=== PATIENT | female | born 1940 | race American Indian/Alaskan Native ===

== ENCOUNTER → 2017-05-12 | Outpatient (CLI) | payer MEDICARE, BC ==
--- NOTE | 2017-05-12 14:34 | MM ---
Reason for exam: screening (asymptomatic). Last mammogram was performed 1 year ago. History: Patient is postmenopausal and had first child at age 36. Took estrogen for 5 years. Physical Findings: A clinical breast exam by your physician is recommended on an annual basis and results should be correlated with mammographic findings. MG 3D Screening Mammo W/Cad Bilateral CC and MLO view(s) were taken. Prior study comparison: May 08, 2016, bilateral MG 3d screening mammo w/cad. March 30, 2015, bilateral MG screening mammo w CAD. There are scattered fibroglandular densities. There is no discrete abnormality. No significant changes when compared with prior studies. ASSESSMENT: Negative, BI-RAD 1 RECOMMENDATION: Routine screening mammogram of both breasts in 1 year.
== END | disposition home or self-care (01) ==
LOC: RADMAMWWP 09:38
PROVIDERS: ATTEND Family Medicine
DX: Z12.31 Encounter for screening mammogram for malignant neoplasm of breast (principal)
CPT/HCPCS: 77063; G0202

== ENCOUNTER → 2018-06-10 | Outpatient (CLI) | payer MEDICARE, BC ==
--- NOTE | 2018-06-15 09:55 | MM ---
Reason for exam: screening (asymptomatic). Last mammogram was performed 1 year and 1 month ago. History: Patient is postmenopausal and had first child at age 36. Took estrogen for 5 years. Physical Findings: A clinical breast exam by your physician is recommended on an annual basis and results should be correlated with mammographic findings. MG 3D Screening Mammo W/Cad Bilateral CC and MLO view(s) were taken. Prior study comparison: May 12, 2017, bilateral MG 3d screening mammo w/cad. May 08, 2016, bilateral MG 3d screening mammo w/cad. The breast tissue is heterogeneously dense. This may lower the sensitivity of mammography. No suspicious abnormality. No significant changes when compared with prior studies. ASSESSMENT: Negative, BI-RAD 1 RECOMMENDATION: Routine screening mammogram of both breasts in 1 year.
== END | disposition home or self-care (01) ==
LOC: RADMAMWWP 10:19
PROVIDERS: ATTEND Family Medicine
DX: Z12.31 Encounter for screening mammogram for malignant neoplasm of breast (principal)
CPT/HCPCS: 77063; 77067

== ENCOUNTER 2019-02-03 20:54 | Observation (INO) | payer MEDICARE, BC ==
[2019-02-03] MEDS ORDERED: MELATONIN 3 MG TABLET PO PRN (21:59)
[2019-02-03] MEDS ORDERED: NALOXONE 0.4 MG/ML 1 ML VIAL IV PRN (21:59)
[2019-02-03] MEDS ORDERED: CALCIUM CARBONATE 500 MG CHEWABLE PO PRN (21:59)
[2019-02-03] MEDS ORDERED: ACETAMINOPHEN TAB 325 MG TAB PO PRN (21:59)
[2019-02-03 22:14] VITALS: RESP 18
[2019-02-03] MEDS ORDERED: ENOXAPARIN 40 MG/0.4 ML SYRINGE SQ SCH ×2 (22:15→22:28)
[2019-02-03] MEDS: ONDANSETRON 4 MG/2 ML VIAL IVP PRN (22:26)
[2019-02-03 22:35] LABS: Basophils % (A) 0 %; Eosinophils # (A) 0.1 k/uL (0-0.7); Eosinophils % (A) 3 %; HCT 36.9 % (34.0-46.0); HGB 12.1 gm/dL (11.4-16.0); Lymphocytes # (A) 0.7 k/uL (1.0-4.8); Lymphocytes % (A) 13 %; MCHC 32.7 g/dL (31.0-37.0); MCV 91.6 fL (80.0-100.0); Mean Platelet Volume 8.2; Monocytes # (A) 0.3 k/uL (0-1.0); Monocytes % (A) 5 %; Neutrophils # (A) 4.4 k/uL (1.3-7.7); Neutrophils % (A) 78 %; Platelet Count 172 k/uL (150-450); RBC 4.03 m/uL (3.80-5.40); RDW 12.9 % (11.5-15.5); WBC 5.7 k/uL (3.8-10.6)
[2019-02-03 22:38] VITALS: BMI 26.4
[2019-02-03 22:48] LABS: ALT 27 U/L (9-52); AST 31 U/L (14-36); Albumin 3.6 g/dL (3.5-5.0); Alkaline Phosphatase 49 U/L (38-126); Anion Gap 9 mmol/L; Blood Urea Nitrogen 12 mg/dL (7-17); Carbon Dioxide 22 mmol/L (22-30); Chloride 105 mmol/L (98-107); Glucose 88 mg/dL (74-99); Magnesium 1.6 mg/dL (1.6-2.3); Sodium 136 mmol/L (137-145); Total Bilirubin 1.1 mg/dL (0.2-1.3); Total Protein 6.3 g/dL (6.3-8.2)
[2019-02-03] MEDS: PANTOPRAZOLE 40 MG/10 ML VIAL IVP SCH (23:33)
[2019-02-03] MEDS: LACTATED RINGERS 1,000 ML IV SCH (23:33)
[2019-02-03] MEDS: CIPROFLOXACIN HCL 500 MG TAB PO SCH (23:33)
[2019-02-03] MEDS: metroNIDAZOLE 500 MG TAB PO SCH (23:33)
[2019-02-04] MEDS: LACTATED RINGERS 1,000 ML IV SCH ×2 (05:32→12:13)
[2019-02-04] MEDS: ONDANSETRON 4 MG/2 ML VIAL IVP PRN ×3 (05:34→17:20)
[2019-02-04] MEDS ORDERED: LEVOTHYROXINE 75 MCG TAB PO SCH (06:30)
[2019-02-04] MEDS: PANTOPRAZOLE 40 MG/10 ML VIAL IVP SCH (08:46)
[2019-02-04] MEDS: CIPROFLOXACIN HCL 500 MG TAB PO SCH (08:47)
[2019-02-04] MEDS: metroNIDAZOLE 500 MG TAB PO SCH ×2 (08:47→16:11)
[2019-02-04] MEDS ORDERED: LOSARTAN 50 MG TAB PO SCH ×2 (09:00)
[2019-02-04 11:27] LABS: Basophils % (A) 0 %; Eosinophils # (A) 0.1 k/uL (0-0.7); Eosinophils % (A) 2 %; HCT 37.4 % (34.0-46.0); Lymphocytes # (A) 0.9 k/uL (1.0-4.8); Lymphocytes % (A) 17 %; MCH 29.5 pg (25.0-35.0); MCV 92.3 fL (80.0-100.0); Mean Platelet Volume 8.1; Monocytes # (A) 0.3 k/uL (0-1.0); Monocytes % (A) 6 %; Neutrophils # (A) 3.9 k/uL (1.3-7.7); Neutrophils % (A) 73 %; Platelet Count 176 k/uL (150-450); RBC 4.06 m/uL (3.80-5.40); RDW 13.2 % (11.5-15.5); WBC 5.3 k/uL (3.8-10.6)
[2019-02-04 11:31] LABS: Anion Gap 6 mmol/L; Blood Urea Nitrogen 12 mg/dL (7-17); Calcium 8.7 mg/dL (8.4-10.2); Carbon Dioxide 24 mmol/L (22-30); Chloride 108 mmol/L (98-107); Glucose 84 mg/dL (74-99); Potassium 3.7 mmol/L (3.5-5.1); Sodium 138 mmol/L (137-145)
[2019-02-04 12:45] VITALS: BP 131/81; PULSE 81
[2019-02-04 16:17] VITALS: TEMP 100.1
[2019-02-04] MEDS: IOPAMIDOL-300 CONTRAST 30 ML VIAL (ORAL USE) PO PRN ×2 (17:06→17:48)
--- NOTE | 2019-02-04 19:13 | CT ---
EXAMINATION TYPE: CT abdomen pelvis w con DATE OF EXAM: 02/04/2019 COMPARISON: 03/04/2012 HISTORY: Acute gastroenterititis, diarrhea, ab pain, hx diverticulitis CT DLP: 1061 mGycm Automated exposure control for dose reduction was used. TECHNIQUE: Helical acquisition of images was performed from the lung bases through the pelvis. CONTRAST: Performed with Oral Contrast and with IV Contrast, patient injected with 100 mL of Isovue 300. FINDINGS: There is some mild atelectasis at the posterior lung bases. There is no pericardial effusion. There i s no pleural effusion. Liver spleen and stomach pancreas gallbladder appear normal. Bile ducts are no t dilated. There is no adrenal mass. The kidneys have normal size and contour. There is normal contrast opacific ation. There is 3 mm calculus lower pole right kidney. There is no hydronephrosis. Ureters are not di lated. There is no retroperitoneal adenopathy. Appendix appears normal. Bladder distends smoothly. Uterus appears normal. There is no free fluid in the pelvis. There is no s ign of pelvic mass. There is no inguinal hernia. There is no sign of a bowel obstruction. There is no mesenteric edema. There is no ascites or free air. The bony structures are intact. IMPRESSION: NEGATIVE CT SCAN ABDOMEN AND PELVIS. NORMAL APPENDIX. NO ADVERSE CHANGE COMPARED TO OLD EXAM. THERE I S CLEARING OF THE INFLAMMATORY CHANGES AT THE PROXIMAL SIGMOID COLON COMPARED TO OLD EXAM.
--- NOTE | 2019-02-04 23:53 | HP ---
HISTORY AND PHYSICAL DATE OF ADMISSION: 02/03/2019. DATE OF SERVICE: 02/03/2019. PRESENTING COMPLAINT: Nausea, vomiting, diarrhea. HISTORY OF PRESENTING COMPLAINT: This is a patient I saw yesterday evening whose chronic stable medical conditions are hypertension and hypothyroid for which patient takes Cozaar and Synthroid. The patient started having nausea, vomiting, diarrhea, and for last 3 days the diarrhea has been profuse multiple times, rather watery, no blood. Has been having also abdominal cramping. Feeling a bit weak, tired, run down, not able to keep anything down by mouth, feeling rather exhausted, dizzy, lightheaded. The patient close to 10 years ago had an episode of diverticulitis, was seen then by Dr. Jimenez. The patient was therefore admitted to the hospital for the same. REVIEW OF SYSTEMS: CONSTITUTIONAL: Weak, tired, run down. HEENT: None. RESPIRATORY: None. CARDIOVASCULAR: None. GASTROINTESTINAL: As above. GENITOURINARY: None. MUSCULOSKELETAL: None. DERMATOLOGICAL: None. HEMATOLOGICAL: None. NEUROLOGIC: None. PAST MEDICAL HISTORY: Diverticulitis, hypothyroid, essential hypertension. PAST SURGICAL HISTORY: None. SOCIAL HISTORY: The patient is a psychiatrist. No smoking, no alcohol. . FAMILY HISTORY: Diabetes. HOME MEDICATIONS: 1. Synthroid 50 mcg a day. 2. Cozaar 25 mg at bedtime. ALLERGIES: None. PHYSICAL EXAMINATION: Vital signs on presentation temperature 99.1, pulse 72, respiratory 18, blood pressure 134/80, pulse ox 98% on room air. GENERAL APPEARANCE: Average build lying in bed, tired appearing. EYES: Pupils are equal. Conjunctive normal. HEENT: External appearance of ears and nose normal. Oral cavity dry mucous membranes. NECK: JVD not raised. Mass not palpable. Respiratory effort normal. LUNGS: Fair air entry. CARDIOVASCULAR: 1st and 2nd heart sounds. No edema. ABDOMEN: Soft. Mild tenderness. No guarding or rigidity. Liver and spleen not palpable. LYMPHATIC: No lymph nodes palpable in the neck or axillae. PSYCHIATRY: Alert and oriented x3. Mood and affect normal. NEUROLOGIC: Pupils equal. Cranial nerves grossly intact. Power and sensation grossly intact. INVESTIGATIONS: White count 5.7, hemoglobin 12.1, potassium 4, BUN 12, creatinine 0.49. ASSESSMENT: 1. Acute severe gastroenteritis, suspect bacterial. The patient has had it for 3 days. 2. Clinical severe dehydration. 3. Essential hypertension. 4. Hypothyroidism. PLAN: Patient will be admitted, started on IV fluids. Empirically start the patient on ciprofloxacin and Flagyl. The patient initially was started on clear liquids and advanced as tolerated. Give Lovenox for DVT prophylaxis. Care was discussed with the patient and , Dr. Martines, and care was discussed. MMODL / IJN: [id number] /
--- NOTE | 2019-02-06 17:34 | DS ---
DISCHARGE SUMMARY DATE OF ADMISSION: 02/03/19. DATE OF DISCHARGE: 02/04/19. FINAL DIAGNOSES: 1. Acute severe gastroenteritis, suspect bacterial. 2. Clinical severe dehydration. 3. Essential hypertension. 4. Hypothyroidism. HOSPITAL COURSE: The patient presented with acute severe gastroenteritis, nausea, vomiting, diarrhea. The patient was given IV fluids, empirically treated with Cipro and Flagyl. Doing better by the time of discharge. The patient is still on clear liquids though nausea has improved. The patient has an important family event at home. Heart grandchild's baby shower and is keen to go home. The patient was also put on Metamucil and over-the- counter Imodium. Care was discussed with the patient and her , Dr. Martines and questions were answered. PHYSICAL EXAMINATION: Temperature 99.8, pulse 81, respiratory 18, blood pressure 130/81, pulse ox 99 percent room air. ABDOMEN: Soft, nontender. INVESTIGATIONS: Potassium 3.7. BUN and creatinine are normal. White count 5.3. DISCHARGE MEDICATIONS: 1. Vitamin D3 1000 units p.o. daily. 2. Vitamin B12 1000 mcg a day. 3. Synthroid 50 mcg a day. 4. Cozaar 25 mg p.o. q.h.s. 5. Ciprofloxacin 500 mg p.o. b.i.d. 4 tablets. 6. Flagyl 500 mg p.o. t.i.d. 7 tablets. Follow with a family doctor in 3 days. DIET: Advance as tolerated. MMODL / IJN: [id number] /
== END 2019-02-04 19:51 | disposition home or self-care (01) ==
LOC: PREINTOOBSV 21:41 → 4MS4W 21:52
PROVIDERS: ADMIT Hospitalist; ATTEND Hospitalist
DX: K52.9 Noninfective gastroenteritis and colitis, unspecified (principal); E86.0 Dehydration; I10 Essential (primary) hypertension; E03.9 Hypothyroidism, unspecified; K57.90 Diverticulosis of intestine, part unspecified, without perforation or abscess without bleeding; Z79.890 Hormone replacement therapy; Z79.899 Other long term (current) drug therapy; Z83.3 Family history of diabetes mellitus
CPT/HCPCS: 96376; 96372; 96374; 96375; 80053; 80048; 83735; 85025 ×2; 74177; G0379; G0378 ×2; J2405 ×2; J1650; C9113 ×2; Q9967

== ENCOUNTER → 2019-09-06 | Outpatient (CLI) | payer MEDICARE, BC ==
--- NOTE | 2019-09-06 13:11 | US ---
EXAMINATION TYPE: US venous doppler duplex LE RT DATE OF EXAM: 09/06/2019 12:54 PM COMPARISON: NONE CLINICAL HISTORY: Right leg; R60.0 Localized edema. recent trip to [place] and patient noticed swelling in right leg that comes and goes SIDE PERFORMED: Right TECHNIQUE: The lower extremity deep venous system is examined utilizing real time linear array sonog kena with graded compression, doppler sonography and color-flow sonography. VESSELS IMAGED: External Iliac Vein (EIV) Common Femoral Vein Deep Femoral Vein Greater Saphenous Vein * Femoral Vein Popliteal Vein Small Saphenous Vein * Proximal Calf Veins (* superficial vessels) Right Leg: Appears negative for DVT IMPRESSION: Grayscale, color doppler, spectral doppler imaging performed of the deep veins of the lo wer extremities. There is normal flow, compressibility, vascular waveforms.
--- NOTE | 2019-09-06 15:08 | XR ---
EXAMINATION TYPE: XR knee complete RT DATE OF EXAM: 09/06/2019 CLINICAL HISTORY: Right knee pain with no known injury TECHNIQUE: Three views of the right knee are obtained. COMPARISON: None. FINDINGS: There is no acute fracture/dislocation evident in right knee. The tri-compartment joint s paces appear aligned with small tricompartmental osteophytes. The tricompartment joint space narrowin g is present. On the frontal view there appears to be a hypoattenuated curvilinear area in the later al compartment however this does not persist on oblique imaging and likely relates to overlap of tiss ues. The overlying soft tissue appears unremarkable. IMPRESSION: There is no acute fracture or dislocation in the right knee. Moderate tricompartmental a rthropathy.
--- NOTE | 2019-09-07 11:26 | MM ---
Reason for exam: screening (asymptomatic). Last mammogram was performed 1 year and 3 months ago. History: Patient is postmenopausal and had first child at age 36. Took estrogen for 5 years. Physical Findings: A clinical breast exam by your physician is recommended on an annual basis and results should be correlated with mammographic findings. MG 3D Screening Mammo W/Cad Bilateral CC and MLO view(s) were taken. Prior study comparison: June 10, 2018, bilateral MG 3d screening mammo w/cad. May 12, 2017, bilateral MG 3d screening mammo w/cad. The breast tissue is heterogeneously dense. This may lower the sensitivity of mammography. No significant changes when compared with prior studies. ASSESSMENT: Benign, BI-RAD 2 RECOMMENDATION: Routine screening mammogram of both breasts in 1 year.
== END | disposition home or self-care (01) ==
LOC: RADUSWWP 12:23
PROVIDERS: ATTEND Family Medicine
DX: Z12.31 Encounter for screening mammogram for malignant neoplasm of breast (principal); R60.0 Localized edema; M17.11 Unilateral primary osteoarthritis, right knee
CPT/HCPCS: 77063; 77067

== ENCOUNTER → 2019-11-15 | Outpatient (CLI) | payer MEDICARE ==
[2019-11-15 10:06] LABS: Basophils # (A) 0.1 k/uL (0-0.2); Basophils % (A) 2 %; Eosinophils # (A) 0.1 k/uL (0-0.7); Eosinophils % (A) 1 %; HCT 40.8 % (34.0-46.0); HGB 12.8 gm/dL (11.4-16.0); Lymphocytes # (A) 1.9 k/uL (1.0-4.8); Lymphocytes % (A) 33 %; MCH 29.7 pg (25.0-35.0); MCHC 31.5 g/dL (31.0-37.0); MCV 94.4 fL (80.0-100.0); Mean Platelet Volume 8.5; Monocytes # (A) 0.3 k/uL (0-1.0); Monocytes % (A) 5 %; Neutrophils # (A) 3.3 k/uL (1.3-7.7); Neutrophils % (A) 58 %; Platelet Count 240 k/uL (150-450); RBC 4.33 m/uL (3.80-5.40); RDW 12.4 % (11.5-15.5); WBC 5.8 k/uL (3.8-10.6)
[2019-11-15 10:15] LABS: ALT 30 U/L (4-34); AST 38 U/L (14-36); African American GFR (CKD) >90 (>60 ml/min/1.73 sqM); Albumin 4.2 g/dL (3.5-5.0); Alkaline Phosphatase 61 U/L (38-126); Anion Gap 6 mmol/L; Blood Urea Nitrogen 9 mg/dL (7-17); Calcium 9.5 mg/dL (8.4-10.2); Carbon Dioxide 29 mmol/L (22-30); Chloride 106 mmol/L (98-107); Glucose 110 mg/dL (74-99); Non-African American GFR(CKD) 86 (>60 ml/min/1.73 sqM); Potassium 4.8 mmol/L (3.5-5.1); Sodium 141 mmol/L (137-145); Total Bilirubin 1.1 mg/dL (0.2-1.3); Total Protein 7.1 g/dL (6.3-8.2)
--- NOTE | 2019-11-15 11:07 | CT ---
EXAMINATION TYPE: CT abdomen pelvis w con DATE OF EXAM: 11/15/2019 COMPARISON: 02/04/2019 HISTORY: Diverticulitis of large intestine CT DLP: 1017 mGycm Automated exposure control for dose reduction was used. CONTRAST: CT scan of the abdomen pelvis is performed with IV Contrast, patient injected with 100 ml mL of Isovu e 300. FINDINGS- LUNG BASES-subsegmental linear changes at the lung bases most typical of atelectasis or scar.. LIVER/GB- No gross abnormality is appreciated. PANCREAS- No gross abnormality is seen. SPLEEN- No gross abnormality is seen. ADRENALS- No gross abnormality is seen. KIDNEYS/BLADDER-tiny subcentimeter hypodensities within the kidneys too small to characterize but sta tistically most likely related to cysts. No hydronephrosis. 2 mm lower pole right renal calculus. BOWEL-bowel gas pattern nonspecific with changes of diverticulosis. No CT evidence of diverticulitis. Retained fecal debris limits assessment.. LYMPH NODES- No greater than 1cm abdominal or pelvic lymph nodes areappreciated. OSSEOUS STRUCTURES-hypertrophic and degenerative change of the spine.. OTHER- aorta of normal caliber. No free fluid. No free air. Tarlov cyst noted involving the sacrum. There is a fat-containing lower anterior abdominal wall hernia. IMPRESSION- 1. Diverticulosis with no CT evidence of diverticulitis. 2. Nonobstructing 2 mm lower pole right renal calculus.
== END | disposition home or self-care (01) ==
LOC: RADCTMAIN 09:26
PROVIDERS: ATTEND Internal Medicine Gastroenterology
DX: K57.90 Diverticulosis of intestine, part unspecified, without perforation or abscess without bleeding (principal); N20.0 Calculus of kidney
CPT/HCPCS: 80053; 85025; 74177; 36415; Q9967

== ENCOUNTER → 2019-12-13 | Outpatient (CLI) | payer MEDICARE ==
--- NOTE | 2019-12-13 16:28 | BD ---
EXAMINATION TYPE: Axial Bone Density DATE OF EXAM: 12/13/2019 COMPARISON: 06.07.2010 CLINICAL HISTORY: 78 YR OLD FEMALE....ICD-10 CODE: Z78.0 ASYMPTOMATIC MENOPAUSAL STATE Height: 61.5 Weight: 149 FRAX RISK QUESTIONS: NOTHING TO NOTE HERE RISK FACTORS HISTORY OF: Postmenopausal woman: YES, AT AGE 57 YRS OLD Take estrogen and/or progesterone medications: IN THE PAST FOR A SHORT WHILE Lost more than 2 inches in height since high school: YES Hyperparathyroidism: NO Adrenal Insufficiency: NO MEDICATIONS: Thyroid Medications: YES, SYNTHROID, FOR ABOUT 10 YRS Additional Medications: VIT D, BP, REFLUX MEDS ON AND OFF, STATIN FOR CHOLESTEROL, Additional History: RECENTLY STOPPED THE STATIN, HYPERTENSION EXAM MEASUREMENTS: Bone mineral densitometry was performed using the Doge[employer] System. Bone mineral density as measured about the Lumbar spine is: ----- L1-L4(G/cm2): 1.033 T Score Values are as follows: ----- L1: -1.5 ----- L2: -1.6 ----- L3: -1.2 ----- L4: -1.0 ----- L1-L4: -1.2 Bone mineral density has: Increased 4.0% since study of: 06.07.2010 Bone mineral density about the R hip (g/cm2): 0.902 Bone mineral density about the L hip (g/cm2): 0.937 T Score values are as follows: -----R Neck: -2.3 -----L Neck: -2.1 -----R Total: -0.8 -----L Total: -0.6 Bone mineral density has: Increased 0.5% since study of: 06.07.2010 FRAX%s: THERE IS A 9.6% CHANCE FOR A MAJOR OSTEOPOROTIC FX AND A 2.9% FOR HIP....PROBABILITY FOR FX IN 10 YRS TIME IMPRESSION: Osteopenia (T Score between -2.5 and -1). There is slightly increased risk of fracture and the patient may be considered for treatment. Re-Screen 2-5 years. NOTE: T-SCORE=SD OF THE YOUNG ADULT MEAN.
== END | disposition home or self-care (01) ==
LOC: RADBDWWP 10:00
PROVIDERS: ATTEND Family Medicine
DX: M85.89 Other specified disorders of bone density and structure, multiple sites (principal); Z78.0 Asymptomatic menopausal state
CPT/HCPCS: 77080

== ENCOUNTER 2020-12-27 21:21 | Observation (INO) | payer MEDICARE ==
[2020-12-27] MEDS ORDERED: ASPIRIN 81 MG PO STA (21:29)
[2020-12-27] MEDS ORDERED: NITROGLYCERIN SL TABS 0.4 MG TAB SUBLINGUAL STA (21:32)
[2020-12-27 21:47] VITALS: RESP 16
[2020-12-27 21:50] LABS: Basophils % (A) 0 %; Eosinophils # (A) 0.1 k/uL (0-0.7); Eosinophils % (A) 2 %; HCT 39.5 % (34.0-46.0); HGB 12.7 gm/dL (11.4-16.0); Lymphocytes % (A) 30 %; MCH 29.9 pg (25.0-35.0); MCHC 32.1 g/dL (31.0-37.0); MCV 93.1 fL (80.0-100.0); Mean Platelet Volume 8.6; Monocytes # (A) 0.4 k/uL (0-1.0); Monocytes % (A) 5 %; Neutrophils % (A) 61 %; Platelet Count 199 k/uL (150-450); RBC 4.25 m/uL (3.80-5.40); RDW 12.7 % (11.5-15.5); WBC 6.7 k/uL (3.8-10.6)
--- NOTE | 2020-12-27 22:01 | XR ---
EXAMINATION: XR chest 2V DATE AND TIME: 12/27/2020 9:51 PM CLINICAL INDICATION: PHH; Chest Pain TECHNIQUE: Departmental protocol COMPARISON: None FINDINGS: In the right infrahilar position of the right lower lung zone there is a zone of subtle ill-defined a dded opacity, measuring approximately 3 cm greatest dimension, which corresponds to the medial right lower lobe. This subtle radiographic finding can correlate with a clinical diagnosis of developing ri ght lower lobe bronchopneumonia. The lungs are otherwise clear and well expanded. The pleural spaces are negative. The cardiac silhouette is not enlarged. The remainder of the mediastinal silhouette is unremarkable. The skeletal structures and soft tissues are negative for acute findings. IMPRESSION: Findings suggest right lower lobe infiltrate.
[2020-12-27 22:04] LABS: INR 0.9 (<1.2); Partial Thromboplastin Time 23.5 sec (22.0-30.0); Prothrombin Time 9.8 sec (9.0-12.0)
[2020-12-27 22:09] LABS: Albumin 4.4 g/dL (3.5-5.0); Calcium 9.5 mg/dL (8.4-10.2); Magnesium 1.8 mg/dL (1.6-2.3); Potassium 4.3 mmol/L (3.5-5.1); Total Bilirubin 0.8 mg/dL (0.2-1.3); Total Protein 7.3 g/dL (6.3-8.2)
--- NOTE | 2020-12-27 22:23 | ED ---
Chest Pain HPI - General Chief Complaint: Chest Pain Stated Complaint: jaw pain Time Seen by Provider: 12/27/20 21:30 Source: patient, family Mode of arrival: ambulatory Limitations: no limitations - History of Present Illness Initial Comments: 79 year old female with past history of hypertension who presents emergency Department with reported jaw pain. States that she started having jaw pain last evening with notable increase in her blood pressure. She did take double the dose of her high blood pressure medication without improvement. Denies previous history of cardiac disease. No previous history of stress testing or heart catheterization. Does admit to associated nausea and fatigue. Denies shortness of breath. No cough. Denies fevers or chills. No ripping or tearing sensation to her back. No history of DVT or PE. No calf pain or swelling. She did call and speak with Dr. Valdez who accompanies the patient into the ED. - Related Data Home Medications Medication Instructions Recorded Confirmed Levothyroxine Sodium [Synthroid] 75 mcg PO DAILY 12/27/20 12/27/20 Previous Rx's Medication Instructions Recorded Aspirin 81 mg PO DAILY #30 chewable 12/28/20 Losartan [Cozaar] 50 mg PO HS #0 12/28/20 amLODIPine [Norvasc] 5 mg PO DAILY #30 tab 12/28/20 Allergies Allergy/AdvReac Type Severity Reaction Status Date / Time No Known Allergies Allergy Verified 12/27/20 22:41 Review of Systems ROS Statement: Those systems with pertinent positive or pertinent negative responses have been documented in the HPI. ROS Other: All systems not noted in ROS Statement are negative. EKG Findings - EKG Comments: EKG Findings:: EKG demonstrates a normal sinus rhythm with a ventricular rate of 80. ND interval 158. QRS 74. QTC of 403. Inverted T waves with ST depression in lead 3. J-point elevation in 1 and aVL. No acute STEMI criteria. Past Medical History Past Medical History: Hypertension, Thyroid Disorder History of Any Multi-Drug Resistant Organisms: None Reported Past Surgical History: No Surgical Hx Reported Past Psychological History: No Psychological Hx Reported Smoking Status: Never smoker Past Alcohol Use History: None Reported Past Drug Use History: None Reported - Past Family History Father Family Medical History: Diabetes Mellitus General Exam Limitations: no limitations General appearance: alert, in no apparent distress Head exam: Present: atraumatic, normocephalic, normal inspection Eye exam: Present: normal appearance, PERRL, EOMI. Absent: scleral icterus, conjunctival injection, periorbital swelling ENT exam: Present: normal exam, mucous membranes moist Neck exam: Present: normal inspection. Absent: tenderness, meningismus, lymphadenopathy Respiratory exam: Present: normal lung sounds bilaterally. Absent: respiratory distress, wheezes, rales, rhonchi, stridor Cardiovascular Exam: Present: regular rate, normal rhythm, normal heart sounds. Absent: systolic murmur, diastolic murmur, rubs, gallop, clicks GI/Abdominal exam: Present: soft, normal bowel sounds. Absent: distended, tenderness, guarding, rebound, rigid Extremities exam: Present: normal inspection, full ROM, normal capillary refill. Absent: tenderness, pedal edema, joint swelling, calf tenderness Back exam: Present: normal inspection Neurological exam: Present: alert, oriented X3, CN II-XII intact Psychiatric exam: Present: normal affect, normal mood Skin exam: Present: warm, dry, intact, normal color. Absent: rash Course Vital Signs 12/27/20 12/27/20 12/27/20 21:31 21:46 22:09 Temperature 98.6 F Pulse Rate 87 85 Respiratory 18 16 Rate Blood Pressure 183/99 137/89 O2 Sat by Pulse 99 97 Oximetry 12/27/20 23:17 Temperature Pulse Rate Respiratory Rate Blood Pressure 128/61 O2 Sat by Pulse Oximetry Chest Pain MDM - MDM Upon arrival patient was placed into room 1. A thorough history and physical exam was performed. Patient is hooked up to continuous pulse ox and cardiac monitoring. 12-lead EKG is performed which is reviewed by myself and Dr. Stephens. Laboratory studies are conducted. Patient was given 324 chewable aspirin and a sublingual nitro. She does have improvement in her pain and blood pressure. Laboratory studies are reviewed. Troponin is negative. Chest x-ray does demonstrate haziness to the right lower lobe. Patient has no clinical symptoms of pneumonia. I discussed results with the patient. Due to her high heart score I did recommend an overnight admission with cardiac consultation in the morning. I did order a placed on the patient. Troponins will be trended. Patient remained in stable condition awaiting a bed on the floor Disposition Clinical Impression: Chest pain Disposition: ADMITTED IP TO THIS HOSP Condition: Stable Is patient prescribed a controlled substance at d/c from ED?: No Decision to Admit Reason: Admit from EC Decision Date: 12/27/20 Decision Time: 22:49
[2020-12-27] MEDS ORDERED: NALOXONE 0.4 MG/ML 1 ML VIAL IV PRN (22:52)
[2020-12-28] MEDS ORDERED: NITROGLYCERIN OINT 1 INCH/GM PACKET TOPICAL STA (00:17)
[2020-12-28 03:42] LABS: Basophils % (A) 0 %; Eosinophils # (A) 0.1 k/uL (0-0.7); Eosinophils % (A) 2 %; HCT 35.7 % (34.0-46.0); HGB 11.8 gm/dL (11.4-16.0); Lymphocytes # (A) 2.1 k/uL (1.0-4.8); Lymphocytes % (A) 34 %; MCH 30.4 pg (25.0-35.0); MCV 92.1 fL (80.0-100.0); Mean Platelet Volume 8.6; Monocytes # (A) 0.4 k/uL (0-1.0); Monocytes % (A) 6 %; Neutrophils # (A) 3.5 k/uL (1.3-7.7); Neutrophils % (A) 56 %; Platelet Count 197 k/uL (150-450); RBC 3.87 m/uL (3.80-5.40); RDW 12.8 % (11.5-15.5); WBC 6.2 k/uL (3.8-10.6)
[2020-12-28 04:01] LABS: Potassium 4.1 mmol/L (3.5-5.1)
[2020-12-28 04:02] LABS: African American GFR (CKD) >90 (>60 ml/min/1.73 sqM); Anion Gap 5 mmol/L; Blood Urea Nitrogen 15 mg/dL (7-17); Carbon Dioxide 28 mmol/L (22-30); Chloride 105 mmol/L (98-107); Glucose 102 mg/dL (74-99); Non-African American GFR(CKD) 86 (>60 ml/min/1.73 sqM); Sodium 138 mmol/L (137-145)
[2020-12-28] MEDS ORDERED: LEVOTHYROXINE 75 MCG TAB PO SCH (06:30)
[2020-12-28] MEDS ORDERED: CAFFEINE CITRATE 60 MG/3 ML VIAL IV PRN (06:51)
[2020-12-28] MEDS ORDERED: REGADENOSON 0.4 MG/5 ML SYRINGE IV PRN (06:51)
[2020-12-28] MEDS ORDERED: AMINOPHYLLINE 500 MG/20 ML VIAL IV PRN (06:51)
[2020-12-28] MEDS ORDERED: amLODIPine 5 MG TAB PO SCH (07:30)
--- NOTE | 2020-12-28 08:25 | CONS ---
CONSULTATION HISTORY OF PRESENT ILLNESS: Mrs. Martines is a 79-year-old female with history of hypertension and also hypothyroidism who has been experiencing nausea, vomiting, dizziness, and also noted to have uncontrolled hypertension for the last 48 hours. The patient has been on Cozaar 50 mg, and she has taken additional doses without much improvement in the blood pressure. She also started having some jaw pain on the left side. Pain is mild. On a scale of 1- 10, it was described as 3. No sweating or shortness of breath. She does admit that she has been short of breath with exertional activities like climbing stairs. In view of that, the patient came to the emergency room. EKG showed a sinus rhythm without any significant changes except T-wave inversions in lead 3. No history of any previous angina or myocardial infarction. No history of strokes. No history of diabetes. The patient is being admitted to the hospital for evaluation of possible unstable angina and uncontrolled hypertension. PAST MEDICAL HISTORY: Significant for hypertension, hypothyroidism, diverticulosis and diverticulitis. No history of previous myocardial infarction or strokes. No diabetes. MEDICATIONS: Her medications prior to admission included Cozaar 50 mg daily and also levothyroxine 75 mcg. She has been using diuretics on p.r.n. basis. ALLERGIES: No known allergies. REVIEW OF SYSTEMS: Denies any headache, visual disturbances. No complaints of cough, fever, or chills. No complaints of abdominal pain, nausea and diarrhea. No focal weakness. PHYSICAL EXAMINATION: Physical examination reveals an elderly female who is alert, oriented, does not appear to be in acute distress. Blood pressure initially was 180/80, subsequently came down to 130/70. NECK: Supple. No JVD. HEART: S1 and S2 heard. No significant murmurs heard. LUNGS: Appear to be clear. No rhonchi or wheezing. ABDOMEN: Soft. EXTREMITIES: No cyanosis, clubbing, or edema. EKG showed sinus rhythm without any acute ST-T abnormalities. Chest x-ray showing some right lower lobe infiltrate. IMPRESSION: 1. Jaw pain, rule out angina. 2. Uncontrolled hypertension. 3. Hypothyroidism. 4. Possible infiltrate in the right lower lobe. PLAN: We will continue to monitor troponin values. We will get an echocardiogram. If echo is normal and troponin is normal, we will proceed with a Lexiscan stress test. Further recommendations depend on the findings on the above tests. The patient does not have any clinical signs suggestive of pneumonia. Will follow chest x-ray reports and if necessary, a pulmonary consult will be obtained. YASH / DAYTON: [id number] /
[2020-12-28] MEDS ORDERED: LOSARTAN 50 MG TAB PO SCH (09:00)
[2020-12-28 11:27] VITALS: TEMP 97.7
[2020-12-28 12:16] VITALS: BP 152/83; PULSE 63
--- NOTE | 2020-12-28 12:25 | ECHOF ---
Referral Reason:chest pain MEASUREMENTS -------- HEIGHT: 160.0 cm WEIGHT: 73.5 kg BP: 159/81 RVIDd: 2.8 cm (< 3.3) IVSd: 1.0 cm (0.6 - 1.1) LVIDd: 4.3 cm (3.9 - 5.3) LVPWd: 1.1 cm (0.6 - 1.1) IVSs: 1.4 cm LVIDs: 3.0 cm LVPWs: 1.6 cm LA Diam: 3.0 cm (2.7 - 3.8) LAESV Index (A-L): 24.58 ml/m Ao Diam: 2.8 cm (2.0 - 3.7) AV Cusp: 1.6 cm (1.5 - 2.6) MV EXCURSION: 12.126 mm (> 18.000) MV EF SLOPE: 44 mm/s (70 - 150) EPSS: 0.6 cm MV E Tej: 0.89 m/s MV DecT: 176 ms MV A Tej: 1.05 m/s MV E/A Ratio: 0.85 RAP: 5.00 mmHg RVSP: 34.57 mmHg FINDINGS -------- Sinus rhythm. This was a technically good study. The left ventricular size is normal. Left ventricular wall thickness is normal. Overall left vent ricular systolic function is normal with, an EF between 60 - 65 %. The right ventricle is normal in size. Normal LA size by volume 22+/-6 ml/m2. The right atrium is normal in size. Interatrial and interventricular septum intact. There is mild aortic valve sclerosis. Trace amount of aortic regurgitation. [id number] mitral regurgitation is present. Mild tricuspid regurgitation present. There is mild pulmonary hypertension. The right ventricular systolic pressure, as measured by Doppler, is 34.57mmHg. Trace/mild (physiologic) pulmonic regurgitation. The aortic root size is normal. Normal inferior vena cava with normal inspiratory collapse consistent with estimated right atrial pre ssure of 5 mmHg. There is no pericardial effusion. CONCLUSIONS -------- 1. The left ventricular size is normal. 2. Left ventricular wall thickness is normal. 3. Overall left ventricular systolic function is normal with, an EF between 60 - 65 %. 4. There is mild aortic valve sclerosis. 5. Trace amount of aortic regurgitation. 6. Dmts-ld-dezqktza mitral regurgitation is present. 7. Mild tricuspid regurgitation present. 8. There is mild pulmonary hypertension. 9. The right ventricular systolic pressure, as measured by Doppler, is 34.57mmHg. 10. Trace/mild (physiologic) pulmonic regurgitation. 11. There is no pericardial effusion. COMPTROLLER: Suki Gordon RDCS
--- NOTE | 2020-12-28 12:34 | NM ---
EXAMINATION TYPE: NM stress lexiscan cardiolite DATE OF EXAM: 12/28/2020 COMPARISON: NONE HISTORY: History of hypertension with chest pain. TECHNIQUE: After the intravenous administration of 10.0 mCi Tc 99m Sestamibi - Cardiolite resting SP ECT images acquired 45 minutes post injection. The patient received 0.4mg Lexiscan, 25.5 mCi Tc 99m Sestamibi - Stress images obtained [address] injection FINDINGS: Review of stress and rest SPECT images demonstrates no distinct perfusion abnormality. Gated analysi s shows normal wall motion with an estimated left ventricular ejection fraction of 59 %. IMPRESSION: No convincing scintigraphic evidence for reversible ischemia.
[2020-12-28 13:18] LABS: Cholesterol 210 mg/dL (<200); HDL Cholesterol 59 mg/dL (40-60); LDL Cholesterol,Calculated 136 mg/dL (0-99); Triglycerides 76 mg/dL (<150)
--- NOTE | 2020-12-28 14:43 | EST ---
EXERCISE STRESS AGE: 79 SEX: Female HT: 5'3" WT: 162 lbs. PROTOCOL: Lexiscan Cardiolite STAGE: N/A DURATION OF EXERCISE: 5 min. HEART RATE REST: 61 BLOOD PRESSURE REST: 151/71 MAXIMUM HEART RATE ACHIEVED: 106 MAXIMUM BLOOD PRESSURE: 150/74 85% MPHR: 122 100% MPHR: 143 METS: N/A INDICATIONS: Chest pain. CLINICAL INFORMATION: STRESS DATA: Heart rate 61, pressure is 151/71 mmHg. Baseline EKG showed sinus mechanism. 0.4 mg of Lexiscan given over 15 seconds per protocol. Max heart rate was 106 beats per minute and maximum pressure was 150/74 mmHg. Clinically the patient did not have any symptoms of chest pain or chest discomfort and the EKG did not show any significant ST or T-wave abnormalities concerning for ischemia. CONCLUSION: 1. Nondiagnostic electrocardiogram stress testing in response to Lexiscan. 2. Please follow up on the Cardiolite portion on a separate. MMODL / IJN: [id number] /
--- NOTE | 2020-12-29 11:00 | P.HPIM ---
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 Patient normally in good health. She follows with Dr. Boland. Her family physician. Because of COVID 19 pandemic has not been able to follow up. She also takes care of who has current medical conditions. Or the course of last few months she is put on weight as she's been crying on different cooking recipes. And because of the pandemic has been pretty much homebound. She thinks a baseline blood pressure runs around 150 systolic. For 2 days at home patient was not feeling well just feeling out of sorts. She also developed some jaw discomfort. She speak to her son or decided to tell her to come to the ER. She denied any precordial chest pain. Because of angina a: She was admitted for the same. This morning she is feeling better. Her blood pressure recorded home was over 200 systolic. Review of systems: GEN.: Tired EYES: None HEENT: Left jaw and neck aching NECK: None RESPIRATORY: None CARDIOVASCULAR: None GASTROINTESTINAL: None GENITOURINARY: None MUSCULOSKELETAL: Occasional joint aches LYMPHATICS: None HEMATOLOGICAL: None PSYCHIATRY: None NEUROLOGICAL: None Past medical history to include: Essential hypertension, hypothyroid Social history: Patient lives with her retired . She is a retired psychiatrist. No history of smoking or alcohol. Physical examination: VITAL SIGNS: 98.6, 87, 18, 183.99, 99% room air upon presentation] GENERAL: Average built, sitting up, comfortable. EYES: Pupils equal. Conjunctiva normal. HEENT: External appearance of nose and ears normal, oral cavity grossly normal. NECK: JVD not raised; masses not palpable. HEART: First and second heart sounds are normal; no edema. LUNGS: Respiratory rate normal; clear to auscultation. ABDOMEN: Soft, nontender, liver spleen not palpable, no masses palpable. PSYCH: Alert and oriented x3; mood and affect normal. NEUROLOGICAL: Cranial nerves grossly intact; no facial asymmetry, power and sensation grossly intact. LYMPHATICS: No lymph nodes palpable in the axilla and neck INVESTIGATIONS, reviewed in the clinical context: WBC 6.2 hemoglobin 11.8 platelets 197 potassium 4.1 creatinine 0.65 LDL 136 TSH 3.3 Coronavirus P/Cr-not detected EKG tracing personally reviewed by me-normal sinus rhythm Chest x-ray film personally reviewed by me-lung pearson clear Assessment and plan: -Accelerated essential hypertension, causing possible angina a every relevant for jaw pain. Norvasc is being added. Continue Cozaar -Possible angina equivalent, with jaw pain -Hypothyroid, continue Synthroid -Primary osteoarthritis, use Tylenol when necessary Patient was seen by cartilage is Dr. Seth. Stress test was ordered. Amlodipine was added for the blood pressure. And also from angina component. Aspirin was added. Care was discussed with the patient. Past Medical History Past Medical History: Hypertension, Thyroid Disorder History of Any Multi-Drug Resistant Organisms: None Reported Past Surgical History: No Surgical Hx Reported Past Psychological History: No Psychological Hx Reported Smoking Status: Never smoker Past Alcohol Use History: None Reported Past Drug Use History: None Reported - Past Family History Father Family Medical History: Diabetes Mellitus Medications and Allergies Home Medications Medication Instructions Recorded Confirmed Type Levothyroxine Sodium [Synthroid] 75 mcg PO DAILY 12/27/20 12/27/20 History Aspirin 81 mg PO DAILY #30 chewable 12/28/20 Rx Losartan [Cozaar] 50 mg PO HS #0 12/28/20 12/27/20 Rx amLODIPine [Norvasc] 5 mg PO DAILY #30 tab 12/28/20 Rx Allergies Allergy/AdvReac Type Severity Reaction Status Date / Time No Known Allergies Allergy Verified 12/27/20 22:41 Physical Exam Vitals: Vital Signs Temp Pulse Resp BP Pulse Ox 12/28/20 12:00 63 152/83 100 12/28/20 08:00 97.7 F 61 159/81 99 12/28/20 04:00 98.1 F 78 16 159/81 98 12/28/20 02:00 62 16 Intake and Output 12/28/20 12/28/20 12/29/20 14:59 22:59 06:59 Intake Total 0 Balance 0 Intake: Oral 0 Other: # Voids 1 Weight 73.5 kg Results CBC & Chem 7: 12/28/20 03:21 12/28/20 03:21 Labs: Abnormal Lab Results - Last 24 Hours (Table) 12/28/20 12/28/20 Range/Units 03: 03:21 Glucose 102 H (74-99) mg/dL Cholesterol 210 H (<200) mg/dL LDL Cholesterol, Calc 136 H (0-99) mg/dL Thrombosis Risk Factor Assmnt - Choose All That Apply Each Factor Represents 1 point: Obesity (BMI >25) Each Risk Factor Represents 3 Points: Age 75 years or older Thrombosis Risk Factor Assessment Total Risk Factor Score: 4 Thrombosis Risk Factor Assessment Level: Moderate Risk
--- NOTE | 2020-12-29 11:05 | P.DS ---
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 Patient normally in good health. She follows with Dr. Boland. Her family physician. Because of COVID 19 pandemic has not been able to follow up. She also takes care of who has current medical conditions. Or the course of last few months she is put on weight as she's been crying on different cooking recipes. And because of the pandemic has been pretty much homebound. She thinks a baseline blood pressure runs around 150 systolic. For 2 days at home patient was not feeling well just feeling out of sorts. She also developed some jaw discomfort. She speak to her son or decided to tell her to come to the ER. She denied any precordial chest pain. Because of angina a: She was admitted for the same. This morning she is feeling better. Her blood pressure recorded home was over 200 systolic. Patient is seen by Dr. Seth. Underwent a nuclear stress test. Came back negative for ischemia. 2-D echocardiogram showed EF of 60-65%. Care was discussed with the patient in detail. Including follow-up with her family doctor, some weight loss measures. Her diet was discussed in detail. Patient's had muscle pains with statins before. She will discussed with the PCP/sand shoveler for alternate medications. Consultation: Dr. 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 Physical examination: VITAL SIGNS: 97.7, 63, 16, 152/83, 100% room air GENERAL: Average built, sitting up, comfortable. EYES: Pupils equal. Conjunctiva normal. HEENT: External appearance of nose and ears normal, oral cavity grossly normal. NECK: JVD not raised; masses not palpable. HEART: First and second heart sounds are normal; no edema. LUNGS: Respiratory rate normal; clear to auscultation. ABDOMEN: Soft, nontender, liver spleen not palpable, no masses palpable. PSYCH: Alert and oriented x3; mood and affect normal. INVESTIGATIONS, reviewed in the clinical context: 2-D echocardiogram-'s EF 60 - 65% Nuclear stress test-negative for ischemia WBC 6.2 hemoglobin 11.8 platelets 197 potassium 4.1 creatinine 0.65 LDL 136 TSH 3.3 Coronavirus P/Cr-not detected EKG tracing personally reviewed by me-normal sinus rhythm Chest x-ray film personally reviewed by me-lung pearson clear Assessment and plan: -Accelerated essential hypertension, causing possible angina a every relevant for jaw pain. Norvasc is being added. Continue Cozaar-better controlled -Mild hyperlipidemia-to follow-up with family doctor/sand shoveler to look for alternative treatment. -Hypothyroid, continue Synthroid -Primary osteoarthritis, use Tylenol when necessary Disposition: Home Patient Condition at Discharge: Stable Plan - Discharge Summary Discharge Rx Participant: No New Discharge Prescriptions: New Aspirin 81 mg PO DAILY #30 chewable amLODIPine [Norvasc] 5 mg PO DAILY #30 tab Continue Levothyroxine Sodium [Synthroid] 75 mcg PO DAILY Changed Losartan [Cozaar] 50 mg PO HS #0 Discharge Medication List Levothyroxine Sodium [Synthroid] 75 mcg PO DAILY 12/27/20 [History] Aspirin 81 mg PO DAILY #30 chewable 12/28/20 [Rx] Losartan [Cozaar] 50 mg PO HS #0 12/28/20 [Rx] amLODIPine [Norvasc] 5 mg PO DAILY #30 tab 12/28/20 [Rx] Follow up Appointment(s)/Referral(s): Eduarda Boland MD [Primary Care Provider] - 01/02/21 4:45 pm Ramesh Stephens MD [STAFF PHYSICIAN] - 1 Week (The office will call you with follow up appointment.) Patient Instructions/Handouts: Chest Pain (DC), Cardiac Stress Test (DC) Discharge Disposition: HOME SELF-CARE
== END 2020-12-28 14:18 | disposition home or self-care (01) ==
LOC: EC 21:21 → 3SCARD 22:54
PROVIDERS: ADMIT Hospitalist; ATTEND Hospitalist
DX: I10 Essential (primary) hypertension (principal); E78.5 Hyperlipidemia, unspecified; E03.9 Hypothyroidism, unspecified; M19.91 Primary osteoarthritis, unspecified site; R07.9 Chest pain, unspecified; R68.84 Jaw pain; Z79.890 Hormone replacement therapy; Z20.822 Contact with and (suspected) exposure to COVID-19; Z79.82 Long term (current) use of aspirin; Z79.899 Other long term (current) drug therapy; Z83.3 Family history of diabetes mellitus
CPT/HCPCS: 99285; 36415; 93005; 93017; 93306; 80061; 80053; 80048; 84443; 83735; 84484 ×2; 85025 ×2; 85610; 85730; 87635; 71046; 78452; G0378 ×2; A9500; J2785

== ENCOUNTER → 2021-03-05 | Outpatient (CLI) | payer MEDICARE ==
--- NOTE | 2021-03-06 13:35 | MM ---
Reason for exam: screening (asymptomatic). Last mammogram was performed 1 year and 6 months ago. History: Patient is postmenopausal and had first child at age 36. Took estrogen for 5 years. Physical Findings: A clinical breast exam by your physician is recommended on an annual basis and results should be correlated with mammographic findings. MG 3D Screening Mammo W/Cad Bilateral CC and MLO view(s) were taken. Prior study comparison: September 06, 2019, bilateral MG 3d screening mammo w/cad. June 10, 2018, bilateral MG 3d screening mammo w/cad. The breast tissue is heterogeneously dense. This may lower the sensitivity of mammography. There is no discrete abnormality. No significant changes when compared with prior studies. ASSESSMENT: Negative, BI-RAD 1 RECOMMENDATION: Routine screening mammogram of both breasts in 1 year.
== END | disposition home or self-care (01) ==
LOC: RADMAMWWP 13:40
PROVIDERS: ATTEND Family Medicine
DX: Z12.31 Encounter for screening mammogram for malignant neoplasm of breast (principal); Z78.0 Asymptomatic menopausal state
CPT/HCPCS: 77063; 77067

== ENCOUNTER → 2022-07-16 | Outpatient (CLI) | payer MEDICARE ==
--- NOTE | 2022-07-17 20:09 | MM ---
Reason for Exam: Screening (asymptomatic). Last mammogram was performed 1 year(s) and 4 month(s) ago. Patient History: Menarche at age 16. First Full-Term at age 36. Late child-bearing (after 30). Postmenopausal. Patient used Estrogen for 5 years. Risk Values: Brook 5 year model risk: 2.1%. NCI Lifetime model risk: 3.5%. Prior Study Comparison: 06/10/2018 Bilateral Screening Mammogram, [facility]. 09/06/2019 Bilateral Screening Mammogram, [facility]. 03/05/2021 Bilateral Screening Mammogram, [facility]. Tissue Density: The breast tissue is heterogeneously dense. This may lower the sensitivity of mammography. Findings: Analyzed By CAD. There is no suspicious group of microcalcifications or new suspicious mass in either breast. Overall Assessment: Negative, BI-RAD 1 Management: Screening Mammogram of both breasts in 1 year. 1. Patient should continue monthly self breast exams. 2. A clinical breast exam by your physician is recommended on an annual basis. 3. This exam should not preclude additional follow-up of suspicious palpable abnormalities. Electronically signed and approved by: Pablo Patterson M.D. Radiologist
--- NOTE | 2022-07-18 08:02 | BD ---
EXAMINATION TYPE: Axial Bone Density DATE OF EXAM: 07/16/2022 COMPARISON: 06.07.2010 CLINICAL HISTORY: 81 years year old Female. ICD-10 CODE: M85.80 OTH DISRD OF BONE DENSITY Height: 62IN Weight: 155 FRAX RISK QUESTIONS: Secondary Osteoporosis: RISK FACTORS HISTORY OF: Postmenopausal woman: YES Take estrogen and/or progesterone medications: PREVIOUSLY AROUND AGE OF 42, NONE CURRENT How lon-3 YEARS MEDICATIONS: Thyroid Medications: Which medication: Levothyroxine How Lon YEARS Additional Medications: BP MED, CHOLESTEROL MED, VITAMIN D Additional History: EXAM MEASUREMENTS: Bone mineral densitometry was performed using the [employer] System. Bone mineral density as measured about the Lumbar spine is: ----- L1-L4(G/cm2): 0.991 T Score Values are as follows: ----- L1: -1.8 ----- L2: -2.0 ----- L3: -1.3 ----- L4: -1.5 ----- L1-L4: -1.6 Bone mineral density has: Decreased -0.3% since study of: 06.07.2010 Bone mineral density about the R hip (g/cm2): 0.875 Bone mineral density about the L hip (g/cm2): 0.898 T Score values are as follows: -----R Neck: -2.4 -----L Neck: -2.5 -----R Total: -1.1 -----L Total: -0.9 Bone mineral density has: Decreased -3.1% since study of: 06.07.2010 FRAX%s: The graph provided illustrates a 11.7% chance for a major osteoporotic fx and a 4.0% chance f or the hips probability for fx in 10 years time. IMPRESSION: Osteopenia (T Score between -2.5 and -1). There is slightly increased risk of fracture and the patient may be considered for treatment. Re-Screen 2-5 years. NOTE: T-SCORE=SD OF THE YOUNG ADULT MEAN.
== END | disposition home or self-care (01) ==
LOC: RADMAMWWP 08:03
PROVIDERS: ATTEND Family Medicine
DX: Z12.31 Encounter for screening mammogram for malignant neoplasm of breast (principal); M85.89 Other specified disorders of bone density and structure, multiple sites
CPT/HCPCS: 77063; 77067; 77080

== ENCOUNTER 2023-09-08 06:47 | Day surgery (SDC) | payer MEDICARE ==
[2023-09-04 14:52] VITALS: BMI 27.4
[~2023-09-08 06:47] MED LIST: DEXAMETHASONE SOD PHOSPHATE 4 MG/ML 1 ML VIAL IV ONE; LACTATED RINGERS 1,000 ML IV SCH; LIDOCAINE 1% (10MG/ML) FOR IV START INTRADERMA PRN; ONDANSETRON 4 MG/2 ML VIAL IVP ONE
[2023-09-08] MEDS ORDERED: HYDROmorphone 0.5 MG/0.5 ML SYRINGE IVP PRN (07:00)
[2023-09-08] MEDS ORDERED: MIDAZOLAM 2 MG/2 ML VIAL IV PRN (07:00)
[2023-09-08 07:34] VITALS: RESP 16; TEMP 97.3
[2023-09-08] MEDS ORDERED: PROPOFOL 10 MG/ML 20 ML VIAL IV ONE (07:49)
[2023-09-08] MEDS ORDERED: LIDOCAINE 1% INJ 10MG/ML (20 ML MDV) ONE (07:49)
--- NOTE | 2023-09-08 08:12 | P.PCN ---
Date of Procedure: 09/08/23 Procedure(s) Performed: Brief history: Patient is a pleasant 82-year-old female scheduled for an elective upper endoscopy as well as colonoscopy as a part of evaluation of iron deficiency anemia/screening for colon cancer. She denies any abdominal pain, nausea vomiting, rectal bleeding or melena. Recent hemoglobin was 11.4 g/dL. Last colonoscopy was 12 years ago. Procedure performed: Esophagogastroduodenoscopy with biopsy Colonoscopy Preoperative diagnosis: Iron deficiency anemia/screening for colon cancer Anesthesia: MAC Procedure: After informed consent was obtained from the patient was brought into the endoscopy unit and IV sedation was administered by anesthesia under continuous monitoring. Initially upper endoscopy was done. The Olympus GF 160 video endoscope was inserted inserted into the mouth and esophagus intubated without any difficulty and was gradually advanced into the stomach and duodenum and carefully examined. The bulb and second part of the duodenum appeared normal. Biopsies were done from the duodenum to rule out celiac disease. The scope was then withdrawn into the stomach adequately insufflated with air and upon careful examination the antrum had mild antral gastritis and biopsies were done from this area. Mucosa of the body, cardia and fundus appeared normal. The scope was then withdrawn into the esophagus. The GE junction was located at 40 cm to the incisors. It appeared regular with no erythema erosions or ulcerations. Rest of the esophagus appeared normal. Patient tolerated the procedure well. At this time the patient continued to remain sedation. Initial digital rectal examination was normal. Olympus CF 160 video colonoscope was then inserted into the rectum and gradually advanced to the cecum without any difficulty. Careful examination was performed as the scope was gradually being withdrawn. The prep was excellent. The cecum, ascending colon, transverse colon, descending colon, sigmoid colon and rectum appeared normal. Scattered sigmoid diverticulosis. Retroflexion was performed in the rectum and small internal hemorrhoids were noted. Patient tolerated the procedure well. Impression: 1. Upper endoscopy revealed minimal antral gastritis but no evidence of esophagitis or peptic ulcer disease 2. Colonoscopy revealed scattered sigmoid diverticulosis and small internal hemorrhoids Recommendations: Findings of this examination were discussed with the patient as well as a family. She was advised to follow with the biopsy results. Continue with a high-fiber diet.
[2023-09-08 08:53] VITALS: BP 137/89; PULSE 70
== END 2023-09-08 09:09 | disposition home or self-care (01) ==
LOC: ORWHC2ENDO 06:47
PROVIDERS: ATTEND Internal Medicine Gastroenterology
DX: K29.50 Unspecified chronic gastritis without bleeding (principal); K57.30 Diverticulosis of large intestine without perforation or abscess without bleeding; K64.8 Other hemorrhoids; D50.9 Iron deficiency anemia, unspecified; I10 Essential (primary) hypertension; E03.9 Hypothyroidism, unspecified; Z79.890 Hormone replacement therapy; Z79.82 Long term (current) use of aspirin; Z79.899 Other long term (current) drug therapy
CPT/HCPCS: 88305; 45378; 43239; J2001; J2704

== ENCOUNTER → 2024-07-28 | Outpatient (CLI) | payer MEDICARE ==
--- NOTE | 2024-07-28 11:40 | BD ---
EXAMINATION TYPE: Axial Bone Density DATE OF EXAM: 07/28/2024 CLINICAL HISTORY: 83 years old Female. ICD-10 CODE: Z78.0 ASYMPTOMATIC MENOPAUSAL Height: 62 Weight: 150 FRAX RISK QUESTIONS: Family History (Parent hip fracture): no History of Fracture in Adulthood: no Secondary Osteoporosis: no RISK FACTORS HISTORY OF: Surgery to Spine/Hip(right/left)/Wrist (right/left): no MEDICATIONS: Thyroid Medications: yes Which medication: Levothyroxine How Lon+ years Osteoporosis Medications: no EXAM MEASUREMENTS: Bone mineral densitometry was performed using the [employer] System. Bone mineral density as measured about the Lumbar spine is: ----- L1-L4(G/cm2): 1.057 T Score Values are as follows: ----- L1: -1.7 ----- L2: -1.4 ----- L3: -0.5 ----- L4: -0.9 ----- L1-L4: -1.0 Z Score Values are as follows: ----- L1: 0.1 ----- L2: 0.4 ----- L3: 1.3 ----- L4: 0.9 ----- L1-L4: -1.0 Bone mineral density has: Increased 6.7% since study of: 07/16/2022 Bone mineral density about the R hip (g/cm2): 0.870 Bone mineral density about the L hip (g/cm2): 0.908 T Score values are as follows: -----R Neck: -2.3 -----L Neck: -2.2 -----R Total: -1.1 -----L Total: -0.8 Z Score values are as follows: -----R Neck: -0.1 -----L Neck: -0.1 -----R Total: 0.9 -----L Total: 1.2 Bone mineral density has: Increased 0.2% since study of: 07/16/2022 FRAX%s: The graph provided illustrates a 10.9% chance for a major osteoporotic fx and a 3.6% chance f or the hips probability for fx in 10 years time. IMPRESSION: Normal (Values between +1 and -1 indicate normal bone mass). Consider repeating this study in 5 year s or sooner if there is some new clinical indication. NOTE: T-SCORE=SD OF THE YOUNG ADULT MEAN. [facility], , 07/28/2024 11:38 AM
--- NOTE | 2024-07-29 14:09 | MM ---
Reason for Exam: Screening (asymptomatic). Last screening mammogram was performed 12 month(s) ago. Patient History: Menarche at age 16. First Full-Term at age 36. Late child-bearing (after 30). Postmenopausal. Patient used Estrogen for 5 years. Risk Values: Brook 5 year model risk: 2.0%. NCI Lifetime model risk: 2.9%. Prior Study Comparison: 03/05/2021 Bilateral Screening Mammogram, [facility]. 07/16/2022 Bilateral MG 3D screening mammo w/cad, [facility]. 07/27/2023 Bilateral MG 3D screening mammo w/cad, [facility]. Tissue Density: The breasts are heterogeneously dense, which may obscure small masses. Findings: Analyzed By CAD. There is no suspicious group of microcalcifications or new suspicious mass in either breast. Overall Assessment: Negative, BI-RAD 1 Management: Screening Mammogram of both breasts in 1 year. . Patient should continue monthly self-breast exams. A clinical breast exam by your physician is recommended on an annual basis. This exam should not preclude additional follow-up of suspicious palpable abnormalities. Note on Brook scores and lifetime risk: 1. A Brook score greater than 3% is considered moderate risk. If this is the case, consider specialist referral to assess eligibility for a risk reducing agent. 2. If overall lifetime risk for the development of breast cancer is 20% or higher, the patient may qualify for future screening with alternating mammogram and breast MRI. [facility], , 07/29/2024 2:06 PM. Electronically signed and approved by: Ildefonso Siegel M.D. Radiologis
== END | disposition home or self-care (01) ==
LOC: RADMAMWWP 09:29
PROVIDERS: ATTEND Internal Medicine
DX: Z12.31 Encounter for screening mammogram for malignant neoplasm of breast (principal); R92.333 Mammographic heterogeneous density, bilateral breasts; M85.89 Other specified disorders of bone density and structure, multiple sites; Z78.0 Asymptomatic menopausal state
CPT/HCPCS: 77063; 77067; 77080